=== PATIENT | male | born 1945 | race Caucasian/White ===

== ENCOUNTER 2023-04-04 17:43 | Emergency (ER) | payer MEDICARE ==
[~2023-04-04] VITALS: Ht 190.5 cm; Wt 85.7 kg
--- NOTE | 2023-04-04 18:00 | NUR ---
[id number] sent by PMD due to high blood pressure 160/89, denies pain. PLACED IN BED, AAOX4, BREATHING UNLABORED SATURATING AT 97%.
--- NOTE | 2023-04-04 18:15 | NUR ---
AT BEDSIDE FOR EVAL.
--- NOTE | 2023-04-04 19:20 | NUR ---
Patient discharged to home in stable condition. Written and verbal after care instructions given. Patient verbalizes understanding of instruction.
[2023-04-04 20:01] VITALS: BP 145/85
== END 2023-04-04 19:20 | disposition home or self-care (01) ==
LOC: ER 17:45
DX: I10 Essential (primary) hypertension (principal); E03.9 Hypothyroidism, unspecified